=== PATIENT | male | born 1980 | race African-American/Black ===

== ENCOUNTER 2023-12-11 12:02 | Emergency (ER) | payer SELFPAY ==
[2023-12-11 12:10] VITALS: BP 137/92; PULSE 77; TEMP 37; O2SAT 98; BMI 31.4
--- NOTE | 2023-12-11 12:31 | US_ITS ---
[facility] [id number] Patient Name: SÁNCHEZ TAN MRN: [id number] date: 1980 Sex: M Assigned Patient Location: ER Current Patient Location: Accession/Order Number: [id number] Exam Date: 12/11/2023 12:32 Report Date: 12/11/2023 13:14 At the request of: HEYDI WELLS Procedure: US scrotum doppler EXAMINATION: US scrotum doppler HISTORY: L testicle pain COMPARISON: No relevant comparison available. TECHNIQUE: High-resolution sonographic imaging of the scrotum and contents was performed. FINDINGS: RIGHT: TESTICLE: Homogeneous echotexture. No visible mass. Color Doppler flow is present. Spectral Doppler demonstrates normal arterial waveform and flow, 4/2 cm/s (PSV/EDV), and normal venous wave flow averaging 1 cm/s. EPIDIDYMIS: Normal size and echogenicity. OTHER: None. LEFT: TESTICLE: Homogeneous echotexture. No visible mass. Color Doppler flow is present. Spectral Doppler demonstrates arterial waveform and flow, 5/2 cm/s (PSV/EDV), and normal venous flow averaging 1 cm/s. EPIDIDYMIS: Normal size and echogenicity. OTHER: Moderate size varicocele. US/US scrotum doppler IMPRESSION: 1. No acute findings to account for patient's symptoms. 2. Left varicocele of uncertain significance regarding patient's current symptoms. Electronically authenticated by: ENRIQUE CHANDLER Date: 12/11/2023 13:14
--- NOTE | 2023-12-11 12:31 | ED_ITS ---
HPI HPI - General Adult General Chief complaint: Urogenital-Male Stated complaint: TESTICULAR PAIN/ POSSIBLE BOIL Time Seen by Provider: 12/11/23 12:10 Source: patient Mode of arrival: walk-in History of Present Illness HPI narrative: Patient presenting to the emergency department for evaluation of 2 years of left testicular pain. Patient states over the last 2 years he has noticed having pain over the left testicle, states the top and the back of the testicle he feels a hard knot, states it is bothering him for the last 2 years. Patient states it has been all day, every day. He never has a day where he does not frequency, penile discharge, penile bleeding. Patient states that he has no concern for sexually transmitted infections. Has had no trauma to the area. States he has no PCP and that he was fairly sick of having the pain every day so he came to the emergency department for evaluation. Related Data Home Medications ?Medication ?Instructions ?Recorded ?Confirmed No Known Home Medications 12/11/23 12/11/23 Allergies Allergy/AdvReac Type Severity Reaction Status Date / Time No Known Drug Allergies Allergy Verified 12/11/23 12:12 Opioid HPI Opioid Management Most Recent Opioid Data: Last Pain Scale 7 12/11/23 12:29 Review of Systems ROS Narrative negative unless otherwise stated in the HPI Exam Narrative Exam Narrative: Abdomen: Soft, ND/NT. No evidence of fluid wave. No pulsatile masses on exam, rebound tenderness, Merchant sign or pain over Mcburney's point. Genital: Left testicle normal lie, station, no abscess, cellulitis, patient has tenderness over the left epididymis, no masses, positive cremasteric reflex, no tenderness was noted or elicited Constitutional Vital Signs, click to edit/add: Last Vital Signs Temp 98.6 F 12/11/23 12:10 Pulse 77 12/11/23 12:10 Resp 18 12/11/23 12:10 BP 137/92 H 12/11/23 12:10 Pulse Ox 98 12/11/23 12:10 O2 Del Method Room Air 12/11/23 12:10 Course Vital Signs Vital signs: Vital Signs Temperature 98.6 F 12/11/23 12:10 Pulse Rate 77 12/11/23 12:10 Respiratory Rate 18 12/11/23 12:10 Blood Pressure 137/92 H 12/11/23 12:10 Pulse Oximetry 98 12/11/23 12:10 Oxygen Delivery Method Room Air 12/11/23 12:10 Temperature 98.6 F 12/11/23 12:10 Pulse Rate 77 12/11/23 12:10 Respiratory Rate 18 12/11/23 12:10 Blood Pressure 137/92 H 12/11/23 12:10 Pulse Oximetry 98 12/11/23 12:10 Oxygen Delivery Method Room Air 12/11/23 12:10 Medical Decision Making MDM Narrative Medical decision making narrative: MDM Patient with history as above presented with testicular swelling and pain for 2 years. History obtained from patient. Patient was nontoxic, stable. Ambulatory. Exam as above. Independently reviewed imaging. Reviewed external records. Differential diagnosis considered. Overall presentation is consistent with varicocele, unclear etiology of specific pain Advanced guidance has been given. Vss, pex is benign at this time. Pt to fu with pcp 1-2 days for reeval, rter should sx worsen, persist or become worrysome in any way. All incidental laboratory studies, EKG, radiologic findings have been noted and discussed with patient. Patient was reevaluated with a benign exam at this time. Pt expressed understanding and agreement with plan of care at this time. Will fu as planned. Pt stable for discharge. Medical Records Medical records reviewed: Yes I reviewed the patient's medical records Discharge Plan Discharge Stand Alone Forms: Portal Instructions Chief Complaint: Urogenital-Male Clinical Impression: Left varicocele Patient Disposition: Home, Self-Care Time of Disposition Decision: 13:21 Prescriptions / Home Meds: No Action No Known Home Medications Print Language: Mauritian Instructions: Scrotal Pain (ED) Additional Instructions: Follow-up with your PCP in the next 1 to 2 days. Return to the emergency department should symptoms worsen or become worrisome in any way. Referrals: Physician,Non-Staff, MD [Primary Care Provider] - 1 week
[2023-12-11 13:33] VITALS: BP 129/83; PULSE 68; O2SAT 98
== END 2023-12-11 13:36 | disposition home or self-care (01) ==
PROVIDERS: Emergency Provider Emergency Medicine
DX: I86.1 Scrotal varices (principal)
CPT/HCPCS: 76870; 93976; 99284